=== PATIENT | male | born 1985 | race Caucasian/White ===

== ENCOUNTER 2016-08-29 18:00 | Emergency (ER) | payer MEDICAID ==
[~2016-08-29] VITALS: Ht 180.3 cm; Wt 104.3 kg
[~2016-08-29 18:00] MED LIST: ACHD5005 PO; BACL20TA PO; CYCL10TA9; DICY20TA57 PO; DIVA500T PO; FAMO20TA5 PO; GABA-488 PO; HYDR-3583 PO; HYDR-700; HYDR-757 PO; HYDR-87; HYDR1TAB PO; LISI-552; LISI1TAB PO; LISI20TA PO; LISINOPRIL; LTH300C PO; METH500T7 PO; METH750T3 PO; NFPRILOC40; NFPRILOC40 PO; ONDA8TAB9 PO; PANT40TA PO; PRD20T PO; PRED10TA PO; QUET200T PO; RANI300T4; SULF1TAB38 PO; TIZA2TAB3; TOPI100T PO; TRAM-21 PO; TRAM50TA2 PO; TRAZ150T42; TRAZ300T3; [UNRECOGNIZED DRUG - OTHER]
[2016-08-29] MEDS ORDERED: NS IV 1000 ML 1,000 ML IV ONE (18:17)
--- NOTE | 2016-08-29 18:26 | ED Cough/URI ---
General Chief Complaint: Cough/Cold/Flu Symptoms Stated Complaint: CP,SOA,COUGH Nursing Triage Note: COUGH CONGESTION FOR 10 DAYS Source: patient Exam Limitations: no limitations History of Present Illness Time seen by provider: 18:06 Initial Comments Here with report of cough and congestion for the last 10 days. He has been unable to get into his doctor. He had more congestion than concerns today so they told he probably ought to go to the ER. He reports the ER with sinus pressure and congestion, sore throat, cough, intermittent fevers and overall not feeling well. States she has been having difficulty eating and drinking but today he is able to eat. Timing/Duration: week, getting worse Severity/Quality: moderate, dry cough Associated Symptoms: cough, fever/chills, nasal congestion, nasal drainage, shortness of breath, sinus infection, sore throat Allergies and Home Medications Allergies Coded Allergies: Penicillins (Unverified Allergy, Intermediate, RASH, 02/11/09) Home Medications Gabapentin 300 Mg Capsule 300 MG PO TID (Reported) Hydrocodone/Ibuprofen 1 Each Tablet #112 (Reported) Hydroxyzine HCl 25 Mg Tablet #90 (Reported) Lisinopril 20 Mg Tablet #90 (Reported) Prednisone 20 Mg Tab #12 40 MG PO DAILY Prescribed by: JENS RAMIREZ on 05/21/16 1038 Tizanidine HCl 2 Mg Tablet #90 (Reported) Tramadol Hcl 50 Mg Tablet #10 50 MG PO Q4H PRN PRN Prescribed by: REMY PATRICK on 03/31/131952 Constitutional: see HPI chills fever EENTM: see HPI throat pain Respiratory: see HPI cough short of breath Cardiovascular: no symptoms reported Gastrointestinal: see HPINo diarrhea, nauseaNo vomiting Genitourinary: no symptoms reported Musculoskeletal: no symptoms reported Skin: no symptoms reported Psychiatric/Neurological: No Symptoms Reported All Other Systems Reviewed Negative Unless Noted: Yes Past Drhsumd-Hxumyd-Ddvfkh Hx Patient Social History Alcohol Use: Denies Use Recreational Drug Use: Yes Smoking Status: Current Everyday Smoker Recent Foreign Travel: No Contact w/Someone Who Travel: No Recent Infectious Disease Expo: No Recent Hopitalizations: No Physical Abuse Screen: No Sexual Abuse: No Surgeries HX Surgeries: Yes (ROTATOR CUFF TO R-ARM) Surgeries: Gallbladder, Orthopedic Respiratory Hx Respiratory Disorders: Yes (ASTHMA) Respiratory Disorders: Asthma Cardiovascular Hx Cardiac Disorders: Yes Cardiac Disorders: Hypertension Neurological Hx Neurological Disorders: No Reproductive System Hx Reproductive Disorders: No Sexually Transmitted Disease: No Genitourinary Hx Genitourinary Disorders: Yes Genitourinary Disorders: Kidney Infection Gastrointestinal Hx Gastrointestinal Disorders: Yes Gastrointestinal Disorders: Gastroesophageal Reflux Musculoskeletal Hx Musculoskeletal Disorders: Yes Musculoskeletal Disorders: Chronic Back Pain Endocrine Hx Endocrine Disorders: No HEENT HX ENT Disorders: No Cancer Hx Cancer: No Psychosocial Hx Psychiatric Problems: Yes Behavioral Health Disorders: Bipolar Integumentary HX Skin/Integumentary Disorder: No Blood Transfusions Hx Blood Disorders: No Reviewed Nursing Assessment Reviewed/Agree w Nursing PMH: Yes Family Medical History Significant Family History: No Pertinent Family Hx Physical Exam Vital Signs Vital Sign - Last 12Hours 08/29/16 18:03 Temp 97.2 Pulse 98 Resp 18 B/P 142/109 Capillary Refill : Less Than 3 Seconds General Appearance: WD/WN no apparent distress HEENT: PERRL/EOMI pharyngeal erythema other (moderate bilateral nasal congestion with purulent drainage and erythema.) Neck: full range of motion supple Respiratory: lungs clear normal breath sounds Cardiovascular: no murmur tachycardia Gastrointestinal: non tender soft Extremities: non-tender normal inspection Neurologic/Psychiatric: alert oriented x 3 Skin: normal color warm/dry Progress/Results/Core Measures Results/Orders Lab Results Laboratory Tests Test 08/29/16 18:27 Range/Units Alanine Aminotransferase (ALT/SGPT) 22 0-55 U/L Albumin 4.1 3.2-4.5 G/DL Alkaline Phosphatase 82 40-136 U/L Anion Gap 10 5-14 MMOL/L Aspartate Amino Transf (AST/SGOT) 14 5-34 U/L BUN/Creatinine Ratio 11 Basophils # (Auto) 0.0 0.0-0.1 10^3/uL Basophils (%) (Auto) 0 0-10 % Blood Urea Nitrogen 9 7-18 MG/DL Calcium Level 9.1 8.5-10.1 MG/DL Carbon Dioxide Level 23 21-32 MMOL/L Chloride Level 107 98-107 MMOL/L Creatinine 0.84 0.60-1.30 MG/DL Eosinophils # (Auto) 0.2 0.0-0.3 10^3/uL Eosinophils (%) (Auto) 2 0-10 % Estimat Glomerular Filtration Rate > 60 Glucose Level 125 H 70-105 MG/DL Hematocrit 44 40-54 % Hemoglobin 15.6 13.3-17.7 G/DL Lymphocytes # (Auto) 4.1 H 1.0-4.0 X 10^3 Lymphocytes (%) (Auto) 36 12-44 % Mean Corpuscular Hemoglobin 31 25-34 PG Mean Corpuscular Hemoglobin Concent 36 32-36 G/DL Mean Corpuscular Volume 86 80-99 FL Mean Platelet Volume 9.6 7.4-10.4 FL Monocytes # (Auto) 1.0 0.0-1.0 X 10^3 Monocytes (%) (Auto) 8 0-12 % Neutrophils # (Auto) 6.2 1.8-7.8 X 10^3 Neutrophils (%) (Auto) 54 42-75 % Platelet Count 291 130-400 10^3/uL Potassium Level 3.6 3.6-5.0 MMOL/L Red Blood Count 5.11 4.35-5.85 10^6/uL Red Cell Distribution Width 12.7 10.0-14.5 % Sodium Level 140 135-145 MMOL/L Total Bilirubin 0.3 0.1-1.0 MG/DL Total Protein 7.1 6.4-8.2 G/DL White Blood Count 11.4 H 4.3-11.0 10^3/uL Micro Results Microbiology 08/29/16 Influenza Types A,B Antigen (BRE) - Final, Complete My Orders Orders-JENS RAMIREZ MD Cbc With Automated Diff (08/29/16 18:17) Comprehensive Metabolic Panel (08/29/16 18:17) Influenza A And B Antigens (08/29/16 18:17) Saline Lock/Iv-Start (08/29/16 18:17) Ns Iv 1000 Ml (Sodium Chloride 0.9%) (08/29/16 18:17) Chest Pa/Lat (2 View) (08/29/16 18:17) Ketorolac Injection (Toradol Injection) (08/29/16 18:31) Dexamethasone Pf Injection (Decadron Pf (08/29/16 19:06) Levofloxacin Tablet (Levaquin Tablet) (08/29/16 19:06) Medications Given in ED Current Medications Medications Dose Ordered Sig/Gonsalo Route Start Time Stop Time Status Last Admin Dose Admin Sodium Chloride 1,000 ml @ 0 mls/hr Q0M ONCE IV 08/29/16 18:17 08/29/16 18:19 DC 08/29/16 18:27 1,000 MLS/HR Vital Signs/I&O Vital Sign - Last 12Hours 08/29/16 18:03 Temp 97.2 Pulse 98 Resp 18 B/P 142/109 Blood Pressure Mean: 120 Progress Note : Progress Note Seen and evaluated. IV, labs, influenza screen, chest x-ray and normal saline 1 L bolus ordered. Monitor patient. 1904: No acute findings. Decadron 10 mg IV and Levaquin 500 mg by mouth. We will treat for probable acute sinusitis given the length of time of the congestion. Discharged home with return precautions. Patient verbalize understanding instructions and agreement with plan. Diagnostic Imaging Diagonstic Imaging: Xray Plain Films/CT/US/NM/MRI: chest Comments NAME: THUAN LORENZO MED REC#: [id number] PT STATUS: REG ER : 1985 PHYSICIAN: JENS RAMIREZ MD ADMIT DATE: 08/29/16/ER Signed Date of Exam: 08/29/16 CHEST PA/LAT (2 VIEW) INDICATION: Cough and shortness of breath and chest pain PA and lateral chest obtained at 6:49 p.m. Heart and mediastinal silhouette are normal in appearance. The lungs are clear. There is no pneumothorax or pleural fluid. IMPRESSION: Negative chest. Dictated by: Dictated on workstation # [id number] Dict: 08/29/16 1838 Trans: 08/29/16 184 SUGEY [id number] Interpreted by: SHARRON GROSS MD Electronically signed by:SHARRON GROSS MD 08/29/16 184 Departure Impression Impression: Primary Impression: Sinusitis, acute Qualified Code: J01.90 - Acute sinusitis, unspecified Additional Impression: Bronchitis Disposition: HOME, SELF-CARE Condition: Stable Departure-Patient Inst. Decision time for Depature: 19:13 Referrals: [facility] (PCP/Family) Primary Care Physician Patient Instructions: Acute Bronchitis, Adult (DC), Sinusitis, Adult (DC) Add. Discharge Instructions: All discharge instructions reviewed with patient and/or family. Voiced understanding. You may take ibuprofen 800 mg every 8 hours as needed for pain. Do not take additional ibuprofen if you're taking a hydrocodone and ibuprofen combination medication. Drink plenty of fluids. Take other medications as directed. Follow-up with your Dr. in 2-3 days for recheck. Return for worse pain, fever, vomiting, weakness, breathing problems or other concerns as needed. Scripts Levofloxacin 500 Mg [id number] Mg PO DAILY #6 TAB Prov:JENS RAMIREZ MD 08/29/16 JENS RAMIREZ MD Aug 29, 2016 18:26
[2016-08-29] MEDS ORDERED: KETOROLAC 30 MG/ML VIAL IVP STA (18:31)
[2016-08-29 18:35] LABS: BASOPHILS % (AUTO) 0 % (0-10); EOSINOPHILS # (AUTO) 0.2 10^3/uL (0.0-0.3); EOSINOPHILS % (AUTO) 2 % (0-10); LYMPHOCYTES # (AUTO) 4.1 X 10^3 (1.0-4.0); LYMPHOCYTES % (AUTO) 36 % (12-44); MEAN CORPUSCULAR HEMOGLOBIN 31 PG (25-34); MEAN CORPUSCULAR HGB CONC 36 G/DL (32-36); MEAN CORPUSCULAR VOLUME 86 FL (80-99); MEAN PLATELET VOLUME 9.6 FL (7.4-10.4); MONOCYTES % (AUTO) 8 % (0-12); NEUTROPHILS # (AUTO) 6.2 X 10^3 (1.8-7.8); NEUTROPHILS % (AUTO) 54 % (42-75); PLATELET COUNT 291 10^3/uL (130-400); RED BLOOD COUNT 5.11 10^6/uL (4.35-5.85); RED CELL DISTRIBUTION WIDTH 12.7 % (10.0-14.5); WHITE BLOOD COUNT 11.4 10^3/uL (4.3-11.0)
--- NOTE | 2016-08-29 18:39 | Diagnostic Imaging Report ---
INDICATION: Cough and shortness of breath and chest pain PA and lateral chest obtained at 6:49 p.m. Heart and mediastinal silhouette are normal in appearance. The lungs are clear. There is no pneumothorax or pleural fluid. IMPRESSION: Negative chest. Dictated by: Dictated on workstation # [id number]
[2016-08-29 18:50] LABS: ALANINE AMINOTRANSFERASE 22 U/L (0-55); ALBUMIN 4.1 G/DL (3.2-4.5); ANION GAP 10 MMOL/L (5-14); ASPARTATE AMINO TRANSFERASE 14 U/L (5-34); BILIRUBIN,TOTAL 0.3 MG/DL (0.1-1.0); BLOOD UREA NITROGEN 9 MG/DL (7-18); BUN/CREATININE RATIO 11; CALCIUM 9.1 MG/DL (8.5-10.1); CARBON DIOXIDE 23 MMOL/L (21-32); CHLORIDE 107 MMOL/L (98-107); CREATININE SERUM 0.84 MG/DL (0.60-1.30); GFR ESTIMATED > 60; GLUCOSE 125 MG/DL (70-105); POTASSIUM 3.6 MMOL/L (3.6-5.0); SODIUM 140 MMOL/L (135-145); TOTAL PROTEIN 7.1 G/DL (6.4-8.2)
[2016-08-29] MEDS ORDERED: DEXAMETHASONE PF 10 MG/ML (DECADRON) VIAL IV STA (19:06)
[2016-08-29] MEDS ORDERED: LEVOFLOXACIN 500 MG TAB (LEVAQUIN) PO STA (19:06)
[2016-08-29] MEDS ORDERED: LEVO500T80 PO (19:14)
[2016-08-29 19:30] VITALS: BP 93/64
== END 2016-08-29 19:30 | disposition home or self-care (01) ==
LOC: EDUNIT# 18:00 → ER 18:02
DX: J01.90 Acute sinusitis, unspecified (principal); J40 Bronchitis, not specified as acute or chronic; I10 Essential (primary) hypertension; F17.210 Nicotine dependence, cigarettes, uncomplicated; Z79.899 Other long term (current) drug therapy
CPT/HCPCS: 36415; 71020; 80053; 85025; 87804; 96361; 96374; 96375

== ENCOUNTER 2018-09-15 16:19 | Emergency (ER) | payer SELFPAY ==
[~2018-09-15] VITALS: Ht 180.3 cm; Wt 99.8 kg
[~2018-09-15 16:19] MED LIST changes: +LEVO500T80 PO
--- NOTE | 2018-09-15 16:52 | ED Back Pain ---
General Chief Complaint: Back Problems Stated Complaint: BACK PAIN Nursing Triage Note: PT REPORTS BACK PAIN FOR LAST TWO DAYS WITH FINGER AND RIGHT FOOT NUMBNESS. PT STATES HE IS SUPPOSE TO HAVE A DOUBLE FUSION ON HIS BACK BUT IS AWAITING TO HEAR FROM INSURANCE FOR APPROVAL. Nursing Sepsis Screen: No Definite Risk Source of Information: Patient Exam Limitations: No Limitations History of Present Illness Date Seen by Provider: Sep 15, 2018 Time Seen by Provider: 16:47 Initial Comments To ER with reports of midline low back pain for the past 2 days after bending forward to wash his face in the sink. He has pain that radiates down the posterior left leg terminating at the knee. He states that he has a known back problems and is "supposed to have surgery but waiting for insurance for approval ". He denies fevers. Denies personal history of cancer. Denies any loss of sensation of his genitals, or loss of control of bowel or bladder. Location: Lumbar Spine, Paraspinous Muscles Timing/Duration: 1-2 Days Severity: Moderate Associated Symptoms: tingling in legs/feet, lower back pain Allergies and Home Medications Allergies Coded Allergies: Penicillins (Unverified Allergy, Intermediate, RASH, 09/15/18) Home Medications Gabapentin 300 Mg Capsule, 300 MG PO TID, (Reported) Levofloxacin 500 Mg Tablet, 500 MG PO DAILY Prescribed by: JENS RAMIREZ on 08/29/161913 Prednisone 20 Mg Tab, 40 MG PO DAILY Prescribed by: JENS RAMIREZ on 05/21/16 1038 Tramadol Hcl 50 Mg Tablet, 50 MG PO Q4H PRN Prescribed by: REMY PATRICK on 03/31/131952 Patient Home Medication List Home Medication List Reviewed: Yes Review of Systems Constitutional: see HPI; No fever EENTM: see HPI Respiratory: no symptoms reported Cardiovascular: no symptoms reported Musculoskeletal: see HPI, back pain Skin: no symptoms reported Psychiatric/Neurological: No Symptoms Reported Past Nxjixbe-Pjjyvi-Mumdrs Hx Patient Social History Alcohol Use: Denies Use Recreational Drug Use: No Smoking Status: Current Everyday Smoker Type Used: Cigarettes Recent Foreign Travel: No Contact w/Someone Who Travel: No Recent Infectious Disease Expo: No Recent Hopitalizations: No Physical Abuse: No Sexual Abuse: No Past Medical History Surgeries: Yes (ROTATOR CUFF TO R-ARM) Gallbladder, Orthopedic Respiratory: Yes (ASTHMA) Asthma Cardiac: Yes Hypertension Neurological: No Reproductive Disorders: No Sexually Transmitted Disease: No Genitourinary: Yes Kidney Infection Gastrointestinal: Yes Gastroesophageal Reflux Musculoskeletal: Yes Degenerate Disk Disease, Chronic Back Pain Endocrine: No HEENT: No Cancer: No Psychosocial: Yes Bipolar Integumentary: No Blood Disorders: No Family Medical History No Pertinent Family Hx Physical Exam Vital Signs Vital Signs - First Documented 09/15/18 16:32 Temp 98.2 Pulse 89 Resp 16 B/P (MAP) 138/80 (99) Pulse Ox 98 Capillary Refill : Less Than 3 Seconds Height, Weight, BMI Height: 5'11.00" Weight: 220lbs. oz. 99.279044as; 27.89 BMI Method:Stated General Appearance: No Apparent Distress, WD/WN HEENT: PERRL/EOMI Neck: Full Range of Motion, Normal Inspection Respiratory: No Accessory Muscle Use, No Respiratory Distress Gastrointestinal: Normal Bowel Sounds, Non Tender, Soft Extremity: Normal Capillary Refill, Normal Inspection Neurologic/Psychiatric: Alert, Oriented x3 Skin: Normal Color, Warm/Dry While sitting in the chair, knee extension is 5 out of 5 bilaterally, 5 out of 5 knee flexion on the right, 4 out of 5 on the left with flexion of the knee. Progress/Results/Core Measures Results/Orders Vital Signs/I&O 09/15/18 16:32 Temp 98.2 Pulse 89 Resp 16 B/P (MAP) 138/80 (99) Pulse Ox 98 Blood Pressure Mean: 99 Departure Communication (Admissions) He asks about imaging. I discussed with him that without trauma or any of the red flags that were addressed in the history of present illness, imaging would not change our treatment plan, would not be warranted at this time. 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 Impression Primary Impression: Lumbar radiculopathy Disposition: 01 HOME, SELF-CARE Condition: Stable Departure-Patient Inst. Decision time for Depature: 16:52 Referrals: [facility] (PCP/Family) Primary Care Physician Patient Instructions: Radiculopathy (DC) Add. Discharge Instructions: 1. Return to ER for any concerns 2. Follow-up with your doctor next week 3. All discharge instructions reviewed with patient and/or family. Voiced understanding. Scripts Prednisone (Prednisone) 20 Mg Tab 40 MG PO DAILY, #8 TAB Prov: DIMITRY KELLEY APRN 09/15/18 Methocarbamol (Robaxin-750) 750 Mg Tablet 750 MG PO Q4H PRN for PAIN-MODERATE TO SEVERE, #20 TAB Prov: DIMITRY KELLEY APRN 09/15/18 Work/School Note: Work Release Form Date Seen in the Emergency Department: Sep 15, 2018 Return to Work: Sep 17, 2018 DIMITRY KELLEY APRN Sep 15, 2018 16:52
[2018-09-15] MEDS ORDERED: PRD20T PO (16:53)
[2018-09-15] MEDS ORDERED: METH-313 PO (16:53)
[2018-09-15] MEDS ORDERED: ORPHENADRINE 60 MG/2 ML (NORFLEX) AMP IM ONE (17:00)
[2018-09-15] MEDS ORDERED: KETOROLAC 60 MG/2 ML VIAL IM ONE (17:00)
[2018-09-15 17:20] VITALS: BP 138/80
== END 2018-09-15 17:20 | disposition home or self-care (01) ==
LOC: EDUNIT# 16:19 → ER 16:23
DX: M54.16 Radiculopathy, lumbar region (principal); J45.909 Unspecified asthma, uncomplicated; I10 Essential (primary) hypertension; K21.9 Gastro-esophageal reflux disease without esophagitis; F31.9 Bipolar disorder, unspecified; F17.210 Nicotine dependence, cigarettes, uncomplicated; Z88.0 Allergy status to penicillin; Z87.448 Personal history of other diseases of urinary system; Z79.52 Long term (current) use of systemic steroids
CPT/HCPCS: 99284

== ENCOUNTER 2021-09-18 17:07 | Emergency (ER) | payer SELFPAY ==
[~2021-09-18] VITALS: Ht 180 cm; Wt 109.0 kg
[~2021-09-18 17:07] MED LIST changes: -LEVO500T80 PO; +LEVO500T81 PO; -LISI-552; +LISI20TA26; +METH-313 PO; +TIZA-169; -TIZA2TAB3
[2021-09-18] MEDS ORDERED: LACTATED RINGERS 1,000 ML IV ONE (17:21)
[2021-09-18] MEDS ORDERED: LACTATED RINGERS 1,000 ML IV STA (17:23)
[2021-09-18 17:28] LABS: BASOPHILS % (AUTO) 1 % (0-10); EOSINOPHILS # (AUTO) 0.1 10^3/uL (0.0-0.3); EOSINOPHILS % (AUTO) 1 % (0-10); HEMATOCRIT 48 % (40-54); HEMOGLOBIN 15.4 g/dL (13.3-17.7); LYMPHOCYTES # (AUTO) 2.6 10^3/uL (1.0-4.0); LYMPHOCYTES % (AUTO) 40 % (12-44); MEAN CORPUSCULAR HEMOGLOBIN 30 pg (25-34); MEAN CORPUSCULAR HGB CONC 32 g/dL (32-36); MEAN CORPUSCULAR VOLUME 92 fL (80-99); MEAN PLATELET VOLUME 10.3 fL (9.0-12.2); MONOCYTES # (AUTO) 0.5 10^3/uL (0.0-1.0); MONOCYTES % (AUTO) 7 % (0-12); NEUTROPHILS # (AUTO) 3.4 10^3/uL (1.8-7.8); NEUTROPHILS % (AUTO) 51 % (42-75); PLATELET COUNT 270 10^3/uL (130-400); WHITE BLOOD COUNT 6.6 10^3/uL (4.3-11.0)
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
[2021-09-18 17:44] LABS: ALBUMIN 4.3 GM/DL (3.2-4.5); POTASSIUM 3.4 MMOL/L (3.6-5.0)
[2021-09-18 17:45] LABS: CALCIUM 8.8 MG/DL (8.5-10.1)
[2021-09-18] MEDS ORDERED: HOLD METFORMIN - RECEIVED CONTRAST 20 ML VIAL IV SCH (17:45)
[2021-09-18] MEDS ORDERED: IOHEXOL 350 MG/ML 100 ML (OMNIPAQUE 350) VIAL IV ONE (17:45)
[2021-09-18] MEDS ORDERED: NS 100 ML (IVPB) BAG IV ONE (17:45)
[2021-09-18 17:46] LABS: TOTAL PROTEIN 7.5 GM/DL (6.4-8.2)
[2021-09-18 17:48] LABS: BILIRUBIN,TOTAL 0.4 MG/DL (0.1-1.0)
[2021-09-18 17:50] LABS: CREATININE SERUM 0.88 MG/DL (0.60-1.30)
--- NOTE | 2021-09-18 17:55 | Diagnostic Imaging Report ---
EXAMINATION: Right elbow 3 or more views HISTORY: Right elbow injury. COMPARISON: None available. FINDINGS: Alignment is normal. No fracture is seen. Joint spaces are normal. IMPRESSION: 1. No fracture. Dictated by: Dictated on workstation # [id number]
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
[2021-09-18 19:30] VITALS: BP 128/99
== END 2021-09-18 19:30 | disposition home or self-care (01) ==
LOC: EDUNIT# 17:07 → ER 17:11
DX: S30.1XXA Contusion of abdominal wall, initial encounter (principal); J45.909 Unspecified asthma, uncomplicated; I10 Essential (primary) hypertension; G89.29 Other chronic pain; M54.9 Dorsalgia, unspecified; Z79.891 Long term (current) use of opiate analgesic; V89.2XXA Person injured in unspecified motor-vehicle accident, traffic, initial encounter
CPT/HCPCS: 36415; 70450; 70486; 71260; 72125; 73080; 74177; 80053; 85025; 93005